=== PATIENT | female | born 1960 | race Caucasian/White ===

== ENCOUNTER 2017-03-18 18:05 | Emergency (ER) | payer OTHER ==
[~2017-03-18] VITALS: Ht 157.5 cm; Wt 64.0 kg
[~2017-03-18 18:05] MED LIST: GABA-529 PO; PRAV20TA4 PO; TRAM50TA4 PO
[2017-03-18] MEDS ORDERED: LEVO50 PO (19:17)
[2017-03-18 19:38] LABS: HEMATOCRIT 33.3 % (36-46); HEMOGLOBIN 10.8 g/dL (12.0-16.0); MEAN CORPUSCULAR HEMOGLOBIN 32.2 pg (26.0-34.0); MEAN CORPUSCULAR HGB CONC 32.6 G/dL (31.0-37.0); MEAN CORPUSCULAR VOLUME 99 fL (80-100); PLATELET COUNT (AUTO) 382 K/uL (150-450); RED BLOOD CELL COUNT(AUTO) 3.36 MIL/uL (4.00-5.20); RED CELL DISTRIBUTION WIDTH 17.4 % (11.5-14.5)
[2017-03-18 19:45] LABS: APPEARANCE,URINE CLEAR (CLEAR); GLUCOSE, URINE (UA) NEGATIVE (NEGATIVE); KETONES,URINE NEGATIVE (NEGATIVE); LEUKOCYTE ESTERASE ,URINE TRACE (NEGATIVE); OCCULT BLOOD,URINE NEGATIVE (NEGATIVE); PROTEIN,URINE NEGATIVE (NEGATIVE)
[2017-03-18 19:49] LABS: ADD UA MICROSCOPIC YES
[2017-03-18 19:51] LABS: ANION GAP 9 mmol/L (8-16); CALCIUM, TOTAL 9.7 mg/dL (8.8-10.5); CARBON DIOXIDE 27 mmol/L (22-29); CHLORIDE 102 mmol/L (98-107); CREATININE 0.95 mg/dL (0.60-1.30); GLOMERULAR FILTR. RATE CALC > 60 mL/min (>60); POTASSIUM 4.1 mmol/L (3.5-5.1); SODIUM SERUM 138 mmol/L (136-145); UREA NITROGEN, BLOOD 18 mg/dL (7-18)
[2017-03-18 19:57] LABS: ALANINE AMINOTRANSFERASE 118 U/L (12-78); ALBUMIN 3.6 g/dL (3.4-5.0); ASPARTATE AMINOTRANSFERASE 81 U/L (15-37); BILIRUBIN,TOTAL 0.3 mg/dL (0.1-1.0); TOTAL PROTEIN, SERUM 8.1 g/dL (6.4-8.2)
[2017-03-18 20:06] LABS: RBC,URINE None Seen /HPF (0-2); SQUAMOUS EPITHELIAL CELL,UR Rare /LPF (None Seen); TRANSITIONAL EPI CELLS,URINE Rare /LPF (None Seen)
[2017-03-18 20:34] LABS: BAND NEUTROPHILS % (MANUAL) 3 % (1-5); LYMPHOCYTES % (MANUAL) 73 % (22-44); TOTAL CELLS COUNTED 100
[2017-03-18 20:35] LABS: RBC MORPHOLOGY COMMENT ABNORMAL RBC MORPH
[2017-03-18] MEDS ORDERED: SODIUM CHLORIDE 0.9% 100 ML ONE (21:14)
[2017-03-18] MEDS ORDERED: IOVERSOL 350 MG/ML 100 ML VIAL ONE (21:14)
[2017-03-18 23:49] VITALS: BP 126/82
== END 2017-03-18 23:54 | disposition home or self-care (01) ==
LOC: EMS 18:06
DX: K44.9 Diaphragmatic hernia without obstruction or gangrene (principal); D72.829 Elevated white blood cell count, unspecified; E03.9 Hypothyroidism, unspecified; E78.00 Pure hypercholesterolemia, unspecified
CPT/HCPCS: 36415; 71020; 74177; 76705; 80053; 81001; 83690; 84484; 85025; 87086; 93005; 99285; J7050; Q9967

== ENCOUNTER 2017-12-07 05:17 | Inpatient (IN) | payer OTHER ==
[~2017-12-07] VITALS: Ht 152.4 cm; Wt 52.8 kg
[~2017-12-07 05:17] MED LIST changes: -GABA-529 PO; +LEVO50 PO; -TRAM50TA4 PO
[2017-12-07] MEDS ORDERED: FERR-89 PO (05:43)
[2017-12-07] MEDS ORDERED: CALC-1009 PO (05:43)
[2017-12-07 06:29] LABS: HEMATOCRIT 30.2 % (36-46); HEMOGLOBIN 9.9 g/dL (12.0-16.0); MEAN CORPUSCULAR HEMOGLOBIN 32.5 pg (26.0-34.0); MEAN CORPUSCULAR HGB CONC 32.7 G/dL (31.0-37.0); MEAN CORPUSCULAR VOLUME 99 fL (80-100); PLATELET COUNT (AUTO) 441 K/uL (150-450); RED BLOOD CELL COUNT(AUTO) 3.05 MIL/uL (4.00-5.20); RED CELL DISTRIBUTION WIDTH 16.5 % (11.5-14.5)
[2017-12-07 06:46] LABS: ANION GAP 8 mmol/L (8-16); CALCIUM, TOTAL 9.4 mg/dL (8.8-10.5); CARBON DIOXIDE 27 mmol/L (22-29); CHLORIDE 105 mmol/L (98-107); CREATININE 0.88 mg/dL (0.60-1.30); GLOMERULAR FILTR. RATE CALC > 60 mL/min (>60); GLUCOSE,RANDOM 87 mg/dL (70-110); POTASSIUM 3.7 mmol/L (3.5-5.1); SODIUM SERUM 140 mmol/L (136-145); UREA NITROGEN, BLOOD 11 mg/dL (7-18)
[2017-12-07 06:54] LABS: ALANINE AMINOTRANSFERASE 28 U/L (12-78); ALBUMIN 3.1 g/dL (3.4-5.0); ALKALINE PHOSPHATASE 213 U/L (46-116); ASPARTATE AMINOTRANSFERASE 76 U/L (15-37); BILIRUBIN,TOTAL 0.4 mg/dL (0.1-1.0); TOTAL PROTEIN, SERUM 7.2 g/dL (6.4-8.2)
[2017-12-07] MEDS ORDERED: IOVERSOL 350 MG/ML 100 ML VIAL ONE (08:00)
[2017-12-07] MEDS ORDERED: SODIUM CHLORIDE 0.9% 100 ML ONE (08:00)
[2017-12-07 08:07] LABS: CREATINE KINASE, TOTAL 180 U/L (26-192); FREE T4 (FREE THYROXINE) 1.07 ng/dL (0.76-1.46); LIPASE 101 U/L (73-393); THYROID STIMULATING HORMONE 7.03 uIU/mL (0.36-3.74)
[2017-12-07 08:18] LABS: INR 1.1 (0.9-1.1); PROTHROMBIN TIME 11.3 SEC (9.4-11.6)
[2017-12-07 08:21] LABS: CREATINE KINASE MB < 0.5 ng/mL (0-5)
[2017-12-07] MEDS ORDERED: ALBUTEROL SULFATE 2.5 MG/0.5 ML NEB SOLUTION NEB ONE (09:00)
[2017-12-07] MEDS ORDERED: CefTRIAXone 1 GM/DEXTROSE 50 ML IV ONE (09:00)
[2017-12-07] MEDS ORDERED: AZITHROMYCIN 500 MG/NS 250 ML IV ONE (09:00)
[2017-12-07] MEDS ORDERED: IPRATROPIUM BROMIDE 0.5 MG/2.5 ML NEB SOLUTION NEB ONE (09:00)
[2017-12-07 09:26] LABS: APPEARANCE,URINE CLEAR (CLEAR); BILIRUBIN,URINE NEGATIVE (NEGATIVE); GLUCOSE, URINE (UA) NEGATIVE (NEGATIVE); KETONES,URINE TRACE mg/dL (NEGATIVE); NITRATE,URINE NEGATIVE (NEGATIVE); OCCULT BLOOD,URINE NEGATIVE (NEGATIVE); PROTEIN,URINE NEGATIVE (NEGATIVE); UROBILINOGEN,URINE 0.2 mg/dL (<=1.0)
[2017-12-07 09:31] LABS: BACTERIA,URINE None Seen /HPF (None Seen); LEUKOCYTE ESTERASE ,URINE TRACE (NEGATIVE); RBC,URINE None Seen /HPF (0-2); SQUAMOUS EPITHELIAL CELL,UR Rare /LPF (None Seen); WBC,URINE 0-2 /HPF (0-5)
[2017-12-07] MEDS ORDERED: 0.9% SODIUM CHLORIDE 10 ML SYRINGE IVP PRN (09:45)
[2017-12-07] MEDS ORDERED: ACETAMINOPHEN 325 MG TABLET PO PRN ×2 (09:45→11:30)
[2017-12-07 10:06] LABS: INFLUENZA TYPE A POSITIVE FOR TYPE A (NEGATIVE); INFLUENZA TYPE B NEGATIVE FOR TYPE B (NEGATIVE)
[2017-12-07 11:02] LABS: EOSINOPHILS % (MANUAL) 2 % (1-6); LYMPHOCYTES % (MANUAL) 67 % (22-44); MONOCYTES % (MANUAL) 2 % (2-9); SEGMENTED NEUTROPHILS % 29 % (40-70); WBC MORPHOLOGY SMUDGE CELLS PRESENT
[2017-12-07] MEDS: PANTOPRAZOLE SODIUM 40 MG DR TABLET PO SCH (11:29)
[2017-12-07] MEDS: OSELTAMIVIR PHOSPHATE 75 MG CAPSULE PO SCH ×2 (11:29→21:02)
[2017-12-07] MEDS ORDERED: MAGNESIUM HYDROXIDE SUSPENSION 30 ML UDCUP PO PRN (11:30)
[2017-12-07] MEDS: CEFEPIME HCL 2 GM in DEXTROSE 5%-WATER 50 ML IV SCH ×2 (11:49→21:02)
[2017-12-07 12:00] VITALS: BP 132/81
[2017-12-07] MEDS: HEPARIN SODIUM,PORCINE 5,000 UNITS/ML VIAL SQ SCH (15:10)
[2017-12-07 16:00] VITALS: BP 109/75
[2017-12-07 17:31] VITALS: BP 122/86
[2017-12-07 19:04] VITALS: BP 121/80
[2017-12-07] MEDS: DOCUSATE SODIUM 100 MG CAPSULE PO SCH (20:56)
[2017-12-07 23:25] VITALS: BP 128/84
[2017-12-08] MEDS: GuaiFENesin/CODEINE [SUGAR FREE] 200-20MG/10 ML SYRUP UDCUP PO PRN (00:27)
[2017-12-08] MEDS: HEPARIN SODIUM,PORCINE 5,000 UNITS/ML VIAL SQ SCH ×3 (00:28→16:17)
[2017-12-08 03:03] VITALS: BP 128/84
[2017-12-08] MEDS: CEFEPIME HCL 2 GM in DEXTROSE 5%-WATER 50 ML IV SCH ×3 (04:32→20:13)
[2017-12-08 06:35] LABS: ALANINE AMINOTRANSFERASE 25 U/L (12-78); ALBUMIN 2.7 g/dL (3.4-5.0); ALKALINE PHOSPHATASE 178 U/L (46-116); ANION GAP 8 mmol/L (8-16); ASPARTATE AMINOTRANSFERASE 62 U/L (15-37); BILIRUBIN,TOTAL 0.3 mg/dL (0.1-1.0); CALCIUM, TOTAL 8.9 mg/dL (8.8-10.5); CARBON DIOXIDE 29 mmol/L (22-29); CHLORIDE 105 mmol/L (98-107); CREATININE 0.84 mg/dL (0.60-1.30); GLOMERULAR FILTR. RATE CALC > 60 mL/min (>60); GLUCOSE,RANDOM 90 mg/dL (70-110); POTASSIUM 4.1 mmol/L (3.5-5.1); SODIUM SERUM 142 mmol/L (136-145); TOTAL PROTEIN, SERUM 6.6 g/dL (6.4-8.2); UREA NITROGEN, BLOOD 14 mg/dL (7-18)
[2017-12-08 06:45] LABS: HEMATOCRIT 27.5 % (36-46); HEMOGLOBIN 9.1 g/dL (12.0-16.0); MEAN CORPUSCULAR HEMOGLOBIN 32.9 pg (26.0-34.0); MEAN CORPUSCULAR VOLUME 100 fL (80-100); PLATELET COUNT (AUTO) 423 K/uL (150-450); RED BLOOD CELL COUNT(AUTO) 2.75 MIL/uL (4.00-5.20); RED CELL DISTRIBUTION WIDTH 16.2 % (11.5-14.5)
[2017-12-08 07:38] LABS: EOSINOPHILS % (MANUAL) 2 % (1-6); LYMPHOCYTES % (MANUAL) 68 % (22-44); MONOCYTES % (MANUAL) 3 % (2-9); SEGMENTED NEUTROPHILS % 27 % (40-70)
[2017-12-08 08:04] VITALS: BP 136/82
[2017-12-08 09:48] VITALS: BP 139/73
[2017-12-08] MEDS: DOCUSATE SODIUM 100 MG CAPSULE PO SCH ×2 (10:07→20:13)
[2017-12-08] MEDS: PANTOPRAZOLE SODIUM 40 MG DR TABLET PO SCH (10:07)
[2017-12-08] MEDS: OSELTAMIVIR PHOSPHATE 75 MG CAPSULE PO SCH ×2 (10:07→20:13)
[2017-12-08] MEDS ORDERED: SODIUM CHLORIDE 0.9% 250 ML IV ONE (11:29)
[2017-12-08 15:16] VITALS: BP 122/83
[2017-12-08] MEDS ORDERED: PNEUMOCOCCAL VACCINE POLYVALENT 0.5 ML VIAL [PPSV23] IM ONE (15:30)
[2017-12-08] MEDS ORDERED: INFLUENZA VIRUS VACCINE QVS 2017-18 (3YR+)/PF 60 MCG/0.5 ML SYRINGE IM ONE (15:30)
[2017-12-08 19:29] VITALS: BP 117/77
[2017-12-08 22:46] LABS: % IRON SATURATION 15.8 % (22-44)
[2017-12-08 23:49] VITALS: BP 120/66
[2017-12-09] MEDS: HEPARIN SODIUM,PORCINE 5,000 UNITS/ML VIAL SQ SCH ×3 (01:05→18:14)
[2017-12-09] MEDS: CEFEPIME HCL 2 GM in DEXTROSE 5%-WATER 50 ML IV SCH ×3 (03:39→21:02)
[2017-12-09 04:31] VITALS: BP 127/76
[2017-12-09 07:14] LABS: HEMOGLOBIN 9.5 g/dL (12.0-16.0); MEAN CORPUSCULAR HEMOGLOBIN 32.8 pg (26.0-34.0); MEAN CORPUSCULAR HGB CONC 32.6 G/dL (31.0-37.0); MEAN CORPUSCULAR VOLUME 101 fL (80-100); PLATELET COUNT (AUTO) 455 K/uL (150-450); RED BLOOD CELL COUNT(AUTO) 2.88 MIL/uL (4.00-5.20); RED CELL DISTRIBUTION WIDTH 17.3 % (11.5-14.5)
[2017-12-09 07:29] LABS: ALANINE AMINOTRANSFERASE 24 U/L (12-78); ALBUMIN 2.8 g/dL (3.4-5.0); ALKALINE PHOSPHATASE 182 U/L (46-116); ANION GAP 10 mmol/L (8-16); ASPARTATE AMINOTRANSFERASE 55 U/L (15-37); BILIRUBIN,TOTAL 0.3 mg/dL (0.1-1.0); CALCIUM, TOTAL 9.4 mg/dL (8.8-10.5); CARBON DIOXIDE 27 mmol/L (22-29); CHLORIDE 103 mmol/L (98-107); CREATININE 0.87 mg/dL (0.60-1.30); GLOMERULAR FILTR. RATE CALC > 60 mL/min (>60); GLUCOSE,RANDOM 96 mg/dL (70-110); SODIUM SERUM 140 mmol/L (136-145); UREA NITROGEN, BLOOD 20 mg/dL (7-18)
[2017-12-09] MEDS: PANTOPRAZOLE SODIUM 40 MG DR TABLET PO SCH (07:51)
[2017-12-09] MEDS: OSELTAMIVIR PHOSPHATE 75 MG CAPSULE PO SCH ×2 (07:52→21:02)
[2017-12-09] MEDS: DOCUSATE SODIUM 100 MG CAPSULE PO SCH ×2 (07:52→21:02)
[2017-12-09] MEDS: OXYGEN THERAPY IH SCH ×2 (07:52→21:02)
[2017-12-09 07:55] VITALS: BP 134/81
[2017-12-09] MEDS: GuaiFENesin/CODEINE [SUGAR FREE] 200-20MG/10 ML SYRUP UDCUP PO PRN (07:59)
[2017-12-09 09:15] LABS: FOLATE SERUM 1.4 ng/mL (5.4-)
[2017-12-09 11:59] VITALS: BP 112/69
[2017-12-09 12:11] LABS: BAND NEUTROPHILS % (MANUAL) 6 % (1-5); LYMPHOCYTES % (MANUAL) 57 % (22-44); MONOCYTES % (MANUAL) 1 % (2-9); SEGMENTED NEUTROPHILS % 36 % (40-70)
[2017-12-09 15:51] VITALS: BP 124/73
[2017-12-09 20:01] VITALS: BP 121/80
[2017-12-10 00:20] VITALS: BP 110/74
[2017-12-10] MEDS: HEPARIN SODIUM,PORCINE 5,000 UNITS/ML VIAL SQ SCH ×2 (00:23→08:24)
[2017-12-10] MEDS: GuaiFENesin/CODEINE [SUGAR FREE] 200-20MG/10 ML SYRUP UDCUP PO PRN (00:23)
[2017-12-10] MEDS: CEFEPIME HCL 2 GM in DEXTROSE 5%-WATER 50 ML IV SCH ×2 (03:58→12:00)
[2017-12-10 05:38] VITALS: BP 120/78
[2017-12-10 07:53] VITALS: BP 130/92
[2017-12-10] MEDS: DOCUSATE SODIUM 100 MG CAPSULE PO SCH (08:24)
[2017-12-10] MEDS: PANTOPRAZOLE SODIUM 40 MG DR TABLET PO SCH (08:24)
[2017-12-10] MEDS: OSELTAMIVIR PHOSPHATE 75 MG CAPSULE PO SCH (08:24)
[2017-12-10] MEDS: OXYGEN THERAPY IH SCH (08:29)
[2017-12-10] MEDS ORDERED: CHOLECALCIFEROL (VIT D3) 1,000 UNITS TABLET PO SCH (09:00)
[2017-12-10 11:17] VITALS: BP 117/78
[2017-12-12 15:15] LABS: FREE KAPPA LIGHT CHAINS,S 26.6 mg/L (3.3-19.4); FREE KAPPA/LAMBDA LT CHN RATIO 1.03 (0.26-1.65)
[2017-12-18 17:19] LABS: ALPHA-1 (IFE & PEP) 0.3 g/dL (0.0-0.4); IGM (IMMUNOFIXATION) 76 mg/dL (26-217)
== END 2017-12-10 15:15 | disposition home or self-care (01) | DRG 139 ==
LOC: EMS 05:17 → AHU 16:23 → UNDOADMIN 16:23 → 5S 12-08 08:25
PROVIDERS: ADMIT Internal Medicine; ATTEND Internal Medicine
DX: J10.00 Influenza due to other identified influenza virus with unspecified type of pneumonia (principal); C91.10 Chronic lymphocytic leukemia of B-cell type not having achieved remission; D80.1 Nonfamilial hypogammaglobulinemia; J90 Pleural effusion, not elsewhere classified; E03.9 Hypothyroidism, unspecified; J18.9 Pneumonia, unspecified organism; K44.9 Diaphragmatic hernia without obstruction or gangrene; N63.10 Unspecified lump in the right breast, unspecified quadrant; M81.0 Age-related osteoporosis without current pathological fracture; E78.00 Pure hypercholesterolemia, unspecified; R59.0 Localized enlarged lymph nodes; M48.50XA Collapsed vertebra, not elsewhere classified, site unspecified, initial encounter for fracture; D63.8 Anemia in other chronic diseases classified elsewhere; Z79.899 Other long term (current) drug therapy
CPT/HCPCS: 71046; 71260; 82306; 82607; 82728; 82746; 82784; 83010; 83540; 83550; 83605; 83615; 83883; 84155; 84165; 84439; 84443; 85045; 86334; 87040; 87081; 87804; 93005; 94060; 94640; 96365; 96368; 99285; J0456; J0692; J0696; J1644; J7050; J7060

== ENCOUNTER 2018-04-15 18:43 | Inpatient (IN) | payer OTHER ==
[~2018-04-15] VITALS: Ht 152.4 cm; Wt 47.1 kg
[~2018-04-15 18:43] MED LIST changes: +CALC-1009 PO; +FERR-89 PO
[2018-04-15] MEDS ORDERED: LETR2.5 PO (19:04)
[2018-04-15] MEDS ORDERED: PALB100C PO (19:04)
[2018-04-15] MEDS ORDERED: SODIUM CHLORIDE 0.9% 1,000 ML IV ONE ×2 (20:30→22:30)
[2018-04-15] MEDS ORDERED: ACETAMINOPHEN 500 MG TABLET PO ONE (20:30)
[2018-04-15] MEDS ORDERED: CefTRIAXone SODIUM 1 GM in DEXTROSE 5%-WATER 10 ML IV ONE (20:45)
[2018-04-15] MEDS ORDERED: AZITHROMYCIN 500 MG/NS 250 ML IV ONE (20:45)
[2018-04-15 20:53] LABS: BASOPHILS % (AUTO) 0.1 % (0.0-2.0); EOSINOPHILS % (AUTO) 0.1 % (1.0-6.0); HEMATOCRIT 27.2 % (36-46); HEMOGLOBIN 9.4 g/dL (12.0-16.0); LYMPHOCYTES # (AUTO) 35.2 K/uL (1.0-4.8); LYMPHOCYTES % (AUTO) 95.7 % (22.0-44.0); MEAN CORPUSCULAR HEMOGLOBIN 33.1 pg (26.0-34.0); MEAN CORPUSCULAR HGB CONC 34.7 G/dL (31.0-37.0); MEAN CORPUSCULAR VOLUME 96 fL (80-100); MONOCYTES # (AUTO) 0.5 K/uL (0.1-1.0); MONOCYTES % (AUTO) 1.2 % (2.0-9.0); NEUTROPHILS # (AUTO) 1.1 K/uL (1.8-7.7); NEUTROPHILS % (AUTO) 2.9 % (40.0-70.0); PLATELET COUNT (AUTO) 174 K/uL (150-450); RED BLOOD CELL COUNT(AUTO) 2.85 MIL/uL (4.00-5.20)
[2018-04-15] MEDS ORDERED: IOVERSOL 320 MG/ML 100 ML VIAL ONE (20:56)
[2018-04-15 21:01] LABS: ANION GAP 8 mmol/L (8-16); CALCIUM, TOTAL 8.7 mg/dL (8.8-10.5); CARBON DIOXIDE 26 mmol/L (22-29); CHLORIDE 103 mmol/L (98-107); CREATININE 0.91 mg/dL (0.60-1.30); GLOMERULAR FILTR. RATE CALC > 60 mL/min (>60); GLUCOSE,RANDOM 106 mg/dL (70-110); POTASSIUM 4.1 mmol/L (3.5-5.1); SODIUM SERUM 137 mmol/L (136-145); UREA NITROGEN, BLOOD 20 mg/dL (7-18)
[2018-04-15 21:15] LABS: ALANINE AMINOTRANSFERASE 115 U/L (12-78); ALBUMIN 3.7 g/dL (3.4-5.0); ALKALINE PHOSPHATASE 152 U/L (46-116); ASPARTATE AMINOTRANSFERASE 111 U/L (15-37); BILIRUBIN,TOTAL 0.5 mg/dL (0.1-1.0); TOTAL PROTEIN, SERUM 8.1 g/dL (6.4-8.2)
[2018-04-15] MEDS ORDERED: MAGNESIUM HYDROXIDE SUSPENSION 30 ML UDCUP PO PRN (22:00)
[2018-04-15 23:30] VITALS: BP 109/60
[2018-04-16 04:08] VITALS: BP 101/66
[2018-04-16 07:06] VITALS: BP 102/55
[2018-04-16 07:15] LABS: EOSINOPHILS % (AUTO) 0 % (1.0-6.0); HEMATOCRIT 25.6 % (36-46); HEMOGLOBIN 8.5 g/dL (12.0-16.0); LYMPHOCYTES # (AUTO) 29.6 K/uL (1.0-4.8); LYMPHOCYTES % (AUTO) 97.2 % (22.0-44.0); MEAN CORPUSCULAR HEMOGLOBIN 31.5 pg (26.0-34.0); MEAN CORPUSCULAR HGB CONC 32.9 G/dL (31.0-37.0); MEAN CORPUSCULAR VOLUME 96 fL (80-100); MONOCYTES # (AUTO) 0.2 K/uL (0.1-1.0); MONOCYTES % (AUTO) 0.6 % (2.0-9.0); NEUTROPHILS # (AUTO) 0.7 K/uL (1.8-7.7); NEUTROPHILS % (AUTO) 2.2 % (40.0-70.0); PLATELET COUNT (AUTO) 159 K/uL (150-450); RED BLOOD CELL COUNT(AUTO) 2.68 MIL/uL (4.00-5.20); RED CELL DISTRIBUTION WIDTH 17.7 % (11.5-14.5)
[2018-04-16 07:21] LABS: ALANINE AMINOTRANSFERASE 98 U/L (12-78); ALBUMIN 3.3 g/dL (3.4-5.0); ALKALINE PHOSPHATASE 146 U/L (46-116); ANION GAP 9 mmol/L (8-16); ASPARTATE AMINOTRANSFERASE 100 U/L (15-37); BILIRUBIN,TOTAL 0.4 mg/dL (0.1-1.0); CALCIUM, TOTAL 7.9 mg/dL (8.8-10.5); CARBON DIOXIDE 24 mmol/L (22-29); CHLORIDE 105 mmol/L (98-107); CREATININE 0.79 mg/dL (0.60-1.30); GLOMERULAR FILTR. RATE CALC > 60 mL/min (>60); GLUCOSE,RANDOM 98 mg/dL (70-110); POTASSIUM 3.7 mmol/L (3.5-5.1); SODIUM SERUM 138 mmol/L (136-145); TOTAL PROTEIN, SERUM 7.6 g/dL (6.4-8.2); UREA NITROGEN, BLOOD 16 mg/dL (7-18)
[2018-04-16] MEDS: DOCUSATE SODIUM 100 MG CAPSULE PO SCH ×2 (08:19→21:11)
[2018-04-16] MEDS: ENOXAPARIN SODIUM 30 MG/0.3 ML PF SYRINGE SQ SCH (08:19)
[2018-04-16] MEDS: PANTOPRAZOLE SODIUM 40 MG DR TABLET PO SCH (08:19)
[2018-04-16] MEDS: LETROZOLE 2.5 MG TABLET PO SCH (08:20)
[2018-04-16 08:28] VITALS: BP 98/58
[2018-04-16] MEDS: ACETAMINOPHEN 325 MG TABLET PO PRN (08:30)
[2018-04-16] MEDS ORDERED: ENOXAPARIN SODIUM 40 MG/0.4 ML PF SYRINGE SQ SCH (09:00)
[2018-04-16] MEDS ORDERED: LETROZOLE 2.5 MG TABLET PO SCH (09:00)
[2018-04-16 10:57] VITALS: BP 93/46
[2018-04-16 15:35] VITALS: BP 128/54
[2018-04-16] MEDS: OxyCODONE HCL/ACETAMINOPHEN 5-325 MG TABLET PO PRN (15:41)
[2018-04-16 20:24] VITALS: BP 92/58
[2018-04-16] MEDS: CefTRIAXone SODIUM 1 GM in DEXTROSE 5%-WATER 10 ML IV SCH (21:12)
[2018-04-16] MEDS: AZITHROMYCIN 500 MG/NS 250 ML IV SCH (21:18)
[2018-04-17 00:28] VITALS: BP 96/55
[2018-04-17] MEDS: OxyCODONE HCL/ACETAMINOPHEN 5-325 MG TABLET PO PRN ×2 (04:10→11:04)
[2018-04-17 04:20] VITALS: BP 108/72
[2018-04-17 07:37] VITALS: BP 101/59
[2018-04-17] MEDS: ENOXAPARIN SODIUM 30 MG/0.3 ML PF SYRINGE SQ SCH (07:57)
[2018-04-17] MEDS: LETROZOLE 2.5 MG TABLET PO SCH (07:57)
[2018-04-17] MEDS: PANTOPRAZOLE SODIUM 40 MG DR TABLET PO SCH (07:57)
[2018-04-17] MEDS: DOCUSATE SODIUM 100 MG CAPSULE PO SCH ×2 (07:57→21:03)
[2018-04-17 12:17] VITALS: BP 98/70
[2018-04-17] MEDS ORDERED: FENO48TA15 PO (14:46)
[2018-04-17] MEDS ORDERED: LEVO500 PO (14:48)
[2018-04-17] MEDS ORDERED: LINA5TAB PO (14:49)
[2018-04-17] MEDS ORDERED: MIRA25TA PO (14:49)
[2018-04-17] MEDS ORDERED: METF500T6 PO (14:50)
[2018-04-17] MEDS ORDERED: RANO500T3 PO (14:51)
[2018-04-17] MEDS ORDERED: PANT40TA25 PO (14:51)
[2018-04-17] MEDS ORDERED: ROSU10 PO (14:52)
[2018-04-17] MEDS ORDERED: VALS160T2 PO (14:52)
[2018-04-17] MEDS ORDERED: BISA10S PR (14:53)
[2018-04-17] MEDS ORDERED: MOM30 PO (14:56)
[2018-04-17] MEDS ORDERED: MORPHINE SULFATE 4 MG/ML SYRINGE IVP PRN (15:30)
[2018-04-17] MEDS ORDERED: ONDANSETRON HCL 4 MG/2 ML VIAL IVP PRN (15:30)
[2018-04-17 15:33] LABS: ABG A-A DIFF O2 157.4 mmHg (10-20.0); ABG CARBOXYHEMOGLOBIN 1.1 % (0.0-1.5); ABG METHEMOGLOBIN 0.7 % (0.0-1.5); ABG OXYGEN CONTENT 12.8 mL/dL (15.0-23.0); ABG OXYGEN SATURATION 94.3 % (95.0-98.0); ABG OXYHEMOGLOBIN 92.6 % (94.0-100.0); ABG PCO2 48 mmHg (35-45); ABG PH 7.356 (7.35-7.450); ABG TOTAL HEMOGLOBIN 9.8 G/dL (12.0-18.0); O2 DEVICE,BLOOD GAS CANNULA (ROOM AIR); PO2, ARTERIAL BG 72.1 mmHg (84.0-92.0); SITE, BLOOD GAS RT RADIAL; SOURCE, BLOOD GAS ARTERIAL; TEMPERATURE, FAHRENHEIT, BG 98.6 FAHREN (96.0-98.6)
[2018-04-17 15:44] VITALS: BP 118/93
[2018-04-17] MEDS ORDERED: FUROSEMIDE 40 MG/4 ML VIAL IVP ONE (16:45)
[2018-04-17 19:15] VITALS: BP 106/70
[2018-04-17] MEDS: CefTRIAXone SODIUM 1 GM in DEXTROSE 5%-WATER 10 ML IV SCH (21:04)
[2018-04-17] MEDS: AZITHROMYCIN 500 MG/NS 250 ML IV SCH (21:19)
[2018-04-18] VITALS (7 sets, daily range): BP systolic 92–106; BP diastolic 46–66
[2018-04-18] MEDS: DOCUSATE SODIUM 100 MG CAPSULE PO SCH ×2 (08:34→20:38)
[2018-04-18] MEDS: PANTOPRAZOLE SODIUM 40 MG DR TABLET PO SCH (08:35)
[2018-04-18] MEDS: OxyCODONE HCL/ACETAMINOPHEN 5-325 MG TABLET PO PRN (08:35)
[2018-04-18] MEDS: LETROZOLE 2.5 MG TABLET PO SCH (08:37)
[2018-04-18] MEDS: ENOXAPARIN SODIUM 30 MG/0.3 ML PF SYRINGE SQ SCH (08:37)
[2018-04-18] MEDS ORDERED: FUROSEMIDE 40 MG/4 ML VIAL IVP ONE (16:30)
[2018-04-18] MEDS ORDERED: 0.9% SODIUM CHLORIDE 5 ML NEB SOLUTION NEB ONE (17:22)
[2018-04-18] MEDS: ALBUTEROL SULFATE 2.5 MG/0.5 ML NEB SOLUTION NEB PRN (17:29)
[2018-04-18 19:28] LABS: EOSINOPHILS % (AUTO) 0 % (1.0-6.0); HEMATOCRIT 23.5 % (36-46); LYMPHOCYTES % (AUTO) 94.2 % (22.0-44.0); MEAN CORPUSCULAR HEMOGLOBIN 32.6 pg (26.0-34.0); MEAN CORPUSCULAR VOLUME 96 fL (80-100); MONOCYTES # (AUTO) 0.3 K/uL (0.1-1.0); MONOCYTES % (AUTO) 0.9 % (2.0-9.0); NEUTROPHILS # (AUTO) 1.5 K/uL (1.8-7.7); NEUTROPHILS % (AUTO) 4.9 % (40.0-70.0); PLATELET COUNT (AUTO) 174 K/uL (150-450); RED BLOOD CELL COUNT(AUTO) 2.45 MIL/uL (4.00-5.20); RED CELL DISTRIBUTION WIDTH 17.3 % (11.5-14.5)
[2018-04-18 19:37] LABS: ANION GAP 6 mmol/L (8-16); CALCIUM, TOTAL 7.9 mg/dL (8.8-10.5); CARBON DIOXIDE 32 mmol/L (22-29); CHLORIDE 101 mmol/L (98-107); CREATININE 0.88 mg/dL (0.60-1.30); GLOMERULAR FILTR. RATE CALC > 60 mL/min (>60); GLUCOSE,RANDOM 137 mg/dL (70-110); POTASSIUM 4.2 mmol/L (3.5-5.1); SODIUM SERUM 139 mmol/L (136-145); UREA NITROGEN, BLOOD 13 mg/dL (7-18)
[2018-04-18] MEDS: CefTRIAXone SODIUM 1 GM in DEXTROSE 5%-WATER 10 ML IV SCH (20:38)
[2018-04-18] MEDS: AZITHROMYCIN 500 MG/NS 250 ML IV SCH (21:56)
[2018-04-19] VITALS (8 sets, daily range): BP systolic 95–137; BP diastolic 60–70
[2018-04-19 06:00] LABS: HEMATOCRIT 22.3 % (36-46); HEMOGLOBIN 7.5 g/dL (12.0-16.0); MEAN CORPUSCULAR HEMOGLOBIN 32.1 pg (26.0-34.0); MEAN CORPUSCULAR HGB CONC 33.5 G/dL (31.0-37.0); MEAN CORPUSCULAR VOLUME 96 fL (80-100); PLATELET COUNT (AUTO) 165 K/uL (150-450); RED BLOOD CELL COUNT(AUTO) 2.32 MIL/uL (4.00-5.20); RED CELL DISTRIBUTION WIDTH 18.2 % (11.5-14.5)
[2018-04-19 06:20] LABS: ANION GAP 6 mmol/L (8-16); CALCIUM, TOTAL 7.7 mg/dL (8.8-10.5); CARBON DIOXIDE 31 mmol/L (22-29); CHLORIDE 103 mmol/L (98-107); CREATININE 0.64 mg/dL (0.60-1.30); GLOMERULAR FILTR. RATE CALC > 60 mL/min (>60); GLUCOSE,RANDOM 88 mg/dL (70-110); POTASSIUM 3.5 mmol/L (3.5-5.1); SODIUM SERUM 140 mmol/L (136-145); UREA NITROGEN, BLOOD 11 mg/dL (7-18)
[2018-04-19 08:02] LABS: BAND NEUTROPHILS % (MANUAL) 0 % (0-5)
[2018-04-19 08:05] LABS: EOSINOPHILS % (MANUAL) 2 % (1-6); LYMPHOCYTES % (MANUAL) 11 % (22-44); REACTIVE LYMPHOCYTES 77 % (0-0); SEGMENTED NEUTROPHILS % 10 % (40-70); WBC MORPHOLOGY SMUDGE CELLS PRESENT
[2018-04-19] MEDS: ENOXAPARIN SODIUM 30 MG/0.3 ML PF SYRINGE SQ SCH (08:51)
[2018-04-19] MEDS: PANTOPRAZOLE SODIUM 40 MG DR TABLET PO SCH (08:51)
[2018-04-19] MEDS: DOCUSATE SODIUM 100 MG CAPSULE PO SCH ×2 (08:51→20:25)
[2018-04-19] MEDS: LETROZOLE 2.5 MG TABLET PO SCH (08:51)
[2018-04-19] MEDS ORDERED: FUROSEMIDE 20 MG/2 ML VIAL IVP ONE (14:00)
[2018-04-19] MEDS ORDERED: 0.9% SODIUM CHLORIDE 5 ML NEB SOLUTION NEB ONE (16:46)
[2018-04-19] MEDS: ALBUTEROL SULFATE 2.5 MG/0.5 ML NEB SOLUTION NEB PRN (16:46)
[2018-04-19] MEDS: CefTRIAXone SODIUM 1 GM in DEXTROSE 5%-WATER 10 ML IV SCH (20:25)
[2018-04-19] MEDS: AZITHROMYCIN 500 MG/NS 250 ML IV SCH (22:30)
[2018-04-20 04:27] VITALS: BP 102/60
[2018-04-20 06:54] LABS: HEMATOCRIT 21.6 % (36-46); HEMOGLOBIN 7.3 g/dL (12.0-16.0); MEAN CORPUSCULAR HEMOGLOBIN 32.4 pg (26.0-34.0); MEAN CORPUSCULAR HGB CONC 33.6 G/dL (31.0-37.0); MEAN CORPUSCULAR VOLUME 97 fL (80-100); PLATELET COUNT (AUTO) 176 K/uL (150-450); RED BLOOD CELL COUNT(AUTO) 2.24 MIL/uL (4.00-5.20); RED CELL DISTRIBUTION WIDTH 17.9 % (11.5-14.5)
[2018-04-20 07:21] LABS: ANION GAP 7 mmol/L (8-16); CALCIUM, TOTAL 8.2 mg/dL (8.8-10.5); CARBON DIOXIDE 31 mmol/L (22-29); CHLORIDE 103 mmol/L (98-107); CREATININE 0.56 mg/dL (0.60-1.30); GLOMERULAR FILTR. RATE CALC > 60 mL/min (>60); GLUCOSE,RANDOM 81 mg/dL (70-110); POTASSIUM 3.6 mmol/L (3.5-5.1); SODIUM SERUM 141 mmol/L (136-145); UREA NITROGEN, BLOOD 14 mg/dL (7-18)
[2018-04-20 08:09] VITALS: BP 99/68
[2018-04-20] MEDS: LETROZOLE 2.5 MG TABLET PO SCH (09:20)
[2018-04-20] MEDS: DOCUSATE SODIUM 100 MG CAPSULE PO SCH ×2 (09:21→20:16)
[2018-04-20] MEDS: PANTOPRAZOLE SODIUM 40 MG DR TABLET PO SCH (09:22)
[2018-04-20] MEDS: FUROSEMIDE 20 MG/2 ML VIAL IVP SCH (09:24)
[2018-04-20] MEDS: ENOXAPARIN SODIUM 30 MG/0.3 ML PF SYRINGE SQ SCH (09:24)
[2018-04-20 11:15] VITALS: BP_SYST 108; BP_SYST 145; BP_DIAS 62; BP_DIAS 98
[2018-04-20 11:30] VITALS: BP_SYST 101; BP_SYST 108; BP_DIAS 60; BP_DIAS 62
[2018-04-20 12:44] LABS: BAND NEUTROPHILS % (MANUAL) 0 % (0-5)
[2018-04-20 12:47] LABS: LYMPHOCYTES % (MANUAL) 84 % (22-44); REACTIVE LYMPHOCYTES 13 % (0-0); SEGMENTED NEUTROPHILS % 3 % (40-70)
[2018-04-20 12:48] LABS: WBC MORPHOLOGY SMUDGE CELLS PRESENT
[2018-04-20 13:56] LABS: ALANINE AMINOTRANSFERASE 57 U/L (12-78); ALBUMIN 2.8 g/dL (3.4-5.0); ALKALINE PHOSPHATASE 131 U/L (46-116); ASPARTATE AMINOTRANSFERASE 64 U/L (15-37); BILIRUBIN,TOTAL 0.2 mg/dL (0.1-1.0); TOTAL PROTEIN, SERUM 7.2 g/dL (6.4-8.2)
[2018-04-20 14:14] LABS: BILIRUBIN,DIRECT < 0.05 mg/dL (0.00-0.20)
[2018-04-20 16:13] VITALS: BP 107/65
[2018-04-20] MEDS: PROMETHAZINE HCL 6.25 MG/5 ML SYRUP ORAL.SYG PO PRN (20:15)
[2018-04-20] MEDS: GuaiFENesin SR 600 MG ER TABLET PO SCH (20:16)
[2018-04-20] MEDS: AZITHROMYCIN 500 MG/NS 250 ML IV SCH (20:16)
[2018-04-20] MEDS: CefTRIAXone SODIUM 1 GM in DEXTROSE 5%-WATER 10 ML IV SCH (20:16)
[2018-04-20 20:29] VITALS: BP 105/66
[2018-04-20] MEDS ORDERED: SODIUM CHLORIDE 0.9% 100 ML ONE (20:50)
[2018-04-21 00:34] VITALS: BP 104/67
[2018-04-21 04:59] VITALS: BP 91/53
[2018-04-21] MEDS ORDERED: SODIUM CHLORIDE 0.9% 100 ML ONE (06:01)
[2018-04-21 06:07] LABS: HEMATOCRIT 21.4 % (36-46); HEMOGLOBIN 7.3 g/dL (12.0-16.0); MEAN CORPUSCULAR HEMOGLOBIN 32.7 pg (26.0-34.0); MEAN CORPUSCULAR HGB CONC 34.3 G/dL (31.0-37.0); MEAN CORPUSCULAR VOLUME 95 fL (80-100); PLATELET COUNT (AUTO) 188 K/uL (150-450); RED BLOOD CELL COUNT(AUTO) 2.24 MIL/uL (4.00-5.20); RED CELL DISTRIBUTION WIDTH 18.3 % (11.5-14.5)
[2018-04-21 06:13] LABS: ANION GAP 6 mmol/L (8-16); CALCIUM, TOTAL 8.7 mg/dL (8.8-10.5); CARBON DIOXIDE 31 mmol/L (22-29); CHLORIDE 104 mmol/L (98-107); CREATININE 0.67 mg/dL (0.60-1.30); GLOMERULAR FILTR. RATE CALC > 60 mL/min (>60); GLUCOSE,RANDOM 81 mg/dL (70-110); SODIUM SERUM 141 mmol/L (136-145); UREA NITROGEN, BLOOD 19 mg/dL (7-18)
[2018-04-21 07:09] LABS: BAND NEUTROPHILS % (MANUAL) 0 % (0-5)
[2018-04-21 07:44] VITALS: BP 107/72
[2018-04-21] MEDS: FUROSEMIDE 20 MG/2 ML VIAL IVP SCH (09:14)
[2018-04-21] MEDS: PANTOPRAZOLE SODIUM 40 MG DR TABLET PO SCH (09:14)
[2018-04-21] MEDS: DOCUSATE SODIUM 100 MG CAPSULE PO SCH ×2 (09:15→20:31)
[2018-04-21] MEDS: LETROZOLE 2.5 MG TABLET PO SCH (09:15)
[2018-04-21] MEDS: GuaiFENesin SR 600 MG ER TABLET PO SCH ×2 (09:15→20:31)
[2018-04-21] MEDS: ENOXAPARIN SODIUM 30 MG/0.3 ML PF SYRINGE SQ SCH (09:15)
[2018-04-21 09:47] LABS: LYMPHOCYTES % (MANUAL) 93 % (22-44); MONOCYTES % (MANUAL) 1 % (2-9); REACTIVE LYMPHOCYTES 2 % (0-0); SEGMENTED NEUTROPHILS % 4 % (40-70)
[2018-04-21 11:39] VITALS: BP 108/67
[2018-04-21] MEDS: PROMETHAZINE HCL 6.25 MG/5 ML SYRUP ORAL.SYG PO PRN (11:56)
[2018-04-21 15:05] VITALS: BP 95/61
[2018-04-21] MEDS: CefTRIAXone SODIUM 1 GM in DEXTROSE 5%-WATER 10 ML IV SCH (20:31)
[2018-04-21 20:39] VITALS: BP 100/71
[2018-04-21] MEDS: AZITHROMYCIN 500 MG/NS 250 ML IV SCH (21:10)
[2018-04-22] VITALS (7 sets, daily range): BP systolic 92–119; BP diastolic 60–73
[2018-04-22] MEDS: GuaiFENesin SR 600 MG ER TABLET PO SCH ×2 (08:59→20:30)
[2018-04-22] MEDS: ENOXAPARIN SODIUM 30 MG/0.3 ML PF SYRINGE SQ SCH (08:59)
[2018-04-22] MEDS: FUROSEMIDE 20 MG/2 ML VIAL IVP SCH (08:59)
[2018-04-22] MEDS: PANTOPRAZOLE SODIUM 40 MG DR TABLET PO SCH (08:59)
[2018-04-22] MEDS: DOCUSATE SODIUM 100 MG CAPSULE PO SCH ×2 (08:59→20:30)
[2018-04-22] MEDS: LETROZOLE 2.5 MG TABLET PO SCH (08:59)
[2018-04-22] MEDS: PROMETHAZINE HCL 6.25 MG/5 ML SYRUP ORAL.SYG PO PRN (08:59)
[2018-04-22] MEDS: ACETAMINOPHEN 325 MG TABLET PO PRN (20:29)
[2018-04-22] MEDS: CefTRIAXone SODIUM 1 GM in DEXTROSE 5%-WATER 10 ML IV SCH (20:30)
[2018-04-22] MEDS: AZITHROMYCIN 500 MG/NS 250 ML IV SCH (22:27)
[2018-04-23 04:09] VITALS: BP 95/59
[2018-04-23 07:07] VITALS: BP 102/61
[2018-04-23] MEDS: LETROZOLE 2.5 MG TABLET PO SCH (08:30)
[2018-04-23] MEDS: ENOXAPARIN SODIUM 30 MG/0.3 ML PF SYRINGE SQ SCH (08:30)
[2018-04-23] MEDS: DOCUSATE SODIUM 100 MG CAPSULE PO SCH (08:30)
[2018-04-23] MEDS: PANTOPRAZOLE SODIUM 40 MG DR TABLET PO SCH (08:30)
[2018-04-23] MEDS: GuaiFENesin SR 600 MG ER TABLET PO SCH (08:30)
[2018-04-23] MEDS: FUROSEMIDE 20 MG/2 ML VIAL IVP SCH (08:30)
[2018-04-23 11:28] VITALS: BP 102/70
[2018-04-23] MEDS ORDERED: DSS100 PO (15:09)
[2018-04-23] MEDS ORDERED: GUAI600T35 PO ×2 (15:10→15:34)
[2018-04-23] MEDS ORDERED: [UNRECOGNIZED DRUG - CODE] PO ×2 (15:10→15:35)
[2018-04-23] MEDS ORDERED: ACET650S14 PR (15:11)
[2018-04-23] MEDS ORDERED: ALBU2.5V2 NEB (15:18)
[2018-04-23] MEDS ORDERED: MOM30 PO (15:19)
[2018-04-23 15:27] VITALS: BP 104/66
[2018-04-23] MEDS ORDERED: DOCU100C33 PO (15:34)
[2018-04-23] MEDS ORDERED: ACET-2902 PO (15:38)
[2018-04-23] MEDS ORDERED: ONDA4TAB9 PO (15:39)
[2018-04-23] MEDS ORDERED: OXYC-26 PO (15:40)
[2018-04-23] MEDS ORDERED: PROM6.25 PO (15:43)
== END 2018-04-23 16:30 | disposition hospice, home (50) | DRG 720 ==
LOC: EMS 18:45 → 5S 23:15 → 5N 04-16 10:49
PROVIDERS: ADMIT Internal Medicine; ATTEND Internal Medicine
DX: A41.9 Sepsis, unspecified organism (principal); J96.01 Acute respiratory failure with hypoxia; R64 Cachexia; J81.1 Chronic pulmonary edema; C78.6 Secondary malignant neoplasm of retroperitoneum and peritoneum; J18.9 Pneumonia, unspecified organism; C91.10 Chronic lymphocytic leukemia of B-cell type not having achieved remission; C79.51 Secondary malignant neoplasm of bone; D64.9 Anemia, unspecified; E78.00 Pure hypercholesterolemia, unspecified; C50.919 Malignant neoplasm of unspecified site of unspecified female breast; E03.9 Hypothyroidism, unspecified; E78.5 Hyperlipidemia, unspecified; I10 Essential (primary) hypertension; Z79.899 Other long term (current) drug therapy; Z85.3 Personal history of malignant neoplasm of breast
CPT/HCPCS: 71046; 71275; 74177; 82805; 83605; 87040; 87070; 87205; 93005; 94640; 96365; 96366; 96375; 99291; J0456; J0696; J1650; J1940; J2405; J7030; J7050; J7060

== ENCOUNTER 2018-12-17 09:35 | Emergency (ER) | payer OTHER ==
[~2018-12-17] VITALS: Ht 160 cm; Wt 40.5 kg
[~2018-12-17 09:35] MED LIST changes: +ACET-2902 PO; -CALC-1009 PO; +DOCU100C33 PO; -FERR-89 PO; +GUAI600T35 PO; -LEVO50 PO; +ONDA4TAB9 PO; +OXYC-26 PO; -PRAV20TA4 PO; +PROM6.2514 PO; +[UNRECOGNIZED DRUG - CODE] PO
[2018-12-17] MEDS ORDERED: 0.9% SODIUM CHLORIDE 10 ML SYRINGE IVP PRN (10:00)
[2018-12-17 10:19] LABS: HEMATOCRIT 28.3 % (36-46); HEMOGLOBIN 8.6 g/dL (12.0-16.0); MEAN CORPUSCULAR HEMOGLOBIN 32.4 pg (26.0-34.0); MEAN CORPUSCULAR HGB CONC 30.4 G/dL (31.0-37.0); MEAN CORPUSCULAR VOLUME 107 fL (80-100); PLATELET COUNT (AUTO) 216 K/uL (150-450); RED BLOOD CELL COUNT(AUTO) 2.66 MIL/uL (4.00-5.20); RED CELL DISTRIBUTION WIDTH 23.3 % (11.5-14.5)
[2018-12-17 10:29] LABS: BAND NEUTROPHILS % (MANUAL) 0 % (0-5)
[2018-12-17 10:32] LABS: INR 1.2 (0.9-1.1); PROTHROMBIN TIME 12.7 SEC (9.4-11.6)
[2018-12-17 10:38] LABS: LACTIC ACID 1.5 mmol/L (0.4-2.0)
[2018-12-17 10:43] LABS: B-TYPE NATRIURETIC PEPTIDE 55 pg/mL (0-100)
[2018-12-17 10:54] LABS: ALANINE AMINOTRANSFERASE 28 U/L (12-78); ALBUMIN 3.7 g/dL (3.4-5.0); ALKALINE PHOSPHATASE 102 U/L (46-116); ANION GAP 11 mmol/L (8-16); ASPARTATE AMINOTRANSFERASE 188 U/L (15-37); BILIRUBIN,TOTAL 0.8 mg/dL (0.1-1.0); CARBON DIOXIDE 28 mmol/L (22-29); CHLORIDE 100 mmol/L (98-107); CREATINE KINASE, TOTAL ONLY 385 U/L (26-192); CREATININE 0.82 mg/dL (0.60-1.30); GLOMERULAR FILTR. RATE CALC > 60 mL/min (>60); GLUCOSE,RANDOM 83 mg/dL (70-110); POTASSIUM 3.7 mmol/L (3.5-5.1); SODIUM SERUM 139 mmol/L (136-145); UREA NITROGEN, BLOOD 14 mg/dL (7-18)
[2018-12-17 10:59] LABS: CALCIUM, TOTAL 11.7 mg/dL (8.8-10.5)
[2018-12-17] MEDS ORDERED: GADOBUTROL 1 MMOL/ML 10 ML VIAL IVP ONE (11:16)
[2018-12-17 11:33] LABS: LYMPHOCYTES % (MANUAL) 95 % (22-44); MONOCYTES % (MANUAL) 1 % (2-9); SEGMENTED NEUTROPHILS % 4 % (40-70)
[2018-12-17 11:42] LABS: APPEARANCE,URINE CLOUDY (CLEAR); BILIRUBIN,URINE NEGATIVE (NEGATIVE); GLUCOSE, URINE (UA) NEGATIVE (NEGATIVE); KETONES,URINE 15 mg/dL (NEGATIVE); LEUKOCYTE ESTERASE ,URINE SMALL (NEGATIVE); NITRATE,URINE POSITIVE (NEGATIVE); OCCULT BLOOD,URINE SMALL (NEGATIVE); PH,URINE 5.5 (5.0-8.0); PROTEIN,URINE TRACE (NEGATIVE); UROBILINOGEN,URINE 0.2 mg/dL (<=1.0)
[2018-12-17 11:51] LABS: BACTERIA,URINE Many /HPF (None Seen); RBC,URINE 0-2 /HPF (0-2); SQUAMOUS EPITHELIAL CELL,UR Few /LPF (None Seen); WBC,URINE 51-100 /HPF (0-5)
[2018-12-17] MEDS ORDERED: CefTRIAXone 1 GM/DEXTROSE 50 ML IV ONE (13:15)
[2018-12-17 14:22] VITALS: BP 138/82
== END 2018-12-17 14:20 | disposition home or self-care (01) ==
LOC: EMS 09:36
DX: N39.0 Urinary tract infection, site not specified (principal); C79.81 Secondary malignant neoplasm of breast; Z79.899 Other long term (current) drug therapy; E78.00 Pure hypercholesterolemia, unspecified; E03.9 Hypothyroidism, unspecified; R41.82 Altered mental status, unspecified; Z85.6 Personal history of leukemia; R79.1 Abnormal coagulation profile
CPT/HCPCS: 36415; 70450; 70553; 71045; 80053; 81001; 82550; 83605; 83880; 84484; 85025; 85610; 85730; 87040; 87077; 87086; 87186; 93005; 96365; 96366; 99285; A9585; J0696